=== PATIENT | male | born 1935 | race Caucasian/White ===

== ENCOUNTER 2016-10-11 06:23 | Day surgery (SDC) | payer MEDICARE ==
[~2016-10-11] VITALS: Ht 170.2 cm; Wt 74.2 kg
[~2016-10-11 06:23] MED LIST: ASPIR 8181 MG PO; LEVOTHYROXINE100 MCG PO; METOPROLOL TART25 MG PO; MIRALAX PACKET17 GM PO; NEPHRO-VITE1 TAB PO; NITROSTAT0.4 MG SL; PHOS-LO667 MG PO; PRESERVISION A1 EAC1 PO; RENVELA800 MG PO; ZOCOR DPS10 MG PO; [UNRECOGNIZED DRUG - OTHER] PR
== END 2016-10-11 10:30 | disposition home or self-care (01) ==
LOC: RAD.S 06:23 → EDSTATUS 08:00 → RAD.S 08:00
PROC: 057F3ZZ Dilation of Left Cephalic Vein, Percutaneous Approach (ICD-10-PCS; principal; 2016-10-11)
DX: T82.858A Stenosis of other vascular prosthetic devices, implants and grafts, initial encounter (principal); N18.6 End stage renal disease; Y83.8 Other surgical procedures as the cause of abnormal reaction of the patient, or of later complication, without mention of misadventure at the time of the procedure; Z98.890 Other specified postprocedural states